=== PATIENT | male | born 1985 | race Caucasian/White ===

== ENCOUNTER 2017-11-15 21:43 | Emergency (ER) | payer OTHER | END 2017-11-15 23:55 | disposition home or self-care (01) | LOC: FTE 21:43 | DX: S90.212A Contusion of left great toe with damage to nail, initial encounter (principal); F17.210 Nicotine dependence, cigarettes, uncomplicated; W22.8XXA Striking against or struck by other objects, initial encounter; Y92.9 Unspecified place or not applicable | CPT/HCPCS: 11740; 99283-25 ==